=== PATIENT | male | born 1980 | race Caucasian/White ===

== ENCOUNTER 2019-08-17 15:11 | Emergency (ER) | payer MEDICAID, SELFPAY ==
[2019-08-17 16:10] VITALS: BP 148/102; PULSE 103; RESP 28; TEMP 37.4; O2SAT 98
--- NOTE | 2019-08-17 17:03 | ED.URI ---
HPI - URI/Sore Throat General Chief Complaint: Upper Respiratory Infection Stated Complaint: EAr/Nose/Throat Time Seen by Provider: 08/17/19 16:57 Source: patient and RN notes reviewed Mode of arrival: ambulatory Limitations: no limitations History of Present Illness HPI Narrative: Patient presents today complaining of a 2-month history of upper respiratory symptoms, sinus pressure left greater than right, and intermittent ear pressure. Symptoms wax and wane, but have not fully resolved since the beginning of June.Yesterday, patient developed a fever and cough. Cough is dry. Denies shortness of breath, sore throat. Week ago he took a few doses of leftover amoxicillin without relief.Patient developed some back pain after coughing last night. MD elicited complaint: fever, cough and sinus pain Related Data Allergies Allergy/AdvReac Type Severity Reaction Status Date / Time No Known Allergies Allergy Verified 08/17/19 16:43 Review of Systems Review of Systems: Narrative: CONSTITUTIONAL: Denies body aches, chills, or sweats.+Fever EYES: Denies visual changes, redness, or discharge. ENT: Denies rhinorrhea, sore throat, or otalgia.+Congestion, sinus pressure CARDIOVASCULAR: Denies chest pain, palpitations, or edema. RESPIRATORY: Denies dyspnea.+Cough GASTROINTESTINAL: Denies abdominal pain, nausea, vomiting, or diarrhea. GENITOURINARY: Denies dysuria or hematuria. SKIN: Denies rash, itching, or wounds. MUSCULOSKELETAL: Denies back pain, joint pain, or myalgia. NEUROLOGIC: Denies headache, numbness, tingling, or weakness. PSYCH: Denies depression or anxiety. PMFSH Comments At time of signature, I have reviewed and agree with nursing past medical, surgical, social and family history unless otherwise noted. Please see nursing chart for further information. There is no relevant family history pertinent to the presenting complaint Exam Narrative: Exam Narrative: GENERAL: Well-appearing, well-nourished, and in no acute distress. HEAD: Normocephalic, atraumatic. EYES: EOMI. No redness or drainage. Conjunctivae normal. ENT: Mucous membranes pink and moist. Nares Congested. No rhinorrhea. Left maxillary sinus tenderness.Patient had a bit of epistaxis from the left side after influenza swab. TMs normal bilaterally. Throat normal. Uvula midline. NECK: Normal AROM. Supple. No lymphadenopathy. CHEST: No respiratory distress. Clear to auscultation. Patient taking shallow breaths due to rib pain. HEART: Regular rate and rhythm. No murmur appreciated. Normal peripheral pulses. EXTREMITIES: Normal range of motion. No edema. SKIN: Warm, dry, no rash. NEURO: No focal deficits. Alert and oriented x3. Gait steady. PSYCH: Normal affect. No signs of depression or anxiety. Course Vital Signs Vital signs: Vital Signs Temperature 99.3 F 08/17/19 16:10 Pulse Rate 103 H 08/17/19 16:10 Respiratory Rate 28 H 08/17/19 16:10 Blood Pressure 148/102 H 08/17/19 16:10 Pulse Oximetry 98 08/17/19 16:10 Temperature 99.3 F 08/17/19 16:10 Pulse Rate 103 H 08/17/19 16:10 Respiratory Rate 28 H 08/17/19 16:10 Blood Pressure 148/102 H 08/17/19 16:10 Pulse Oximetry 98 08/17/19 16:10 Reviewed. Pt has been instructed to follow up with his PCP regarding his elevated blood pressure today. MDM - URI/Sore Throat Differential Diagnosis Differential diagnosis: Likely upper respiratory infection, sinusitis, viral infection and influenza Lab Data Attestation: I reviewed the patient's lab results. Labs: Influenza A Screen Positive Reference Range: Negative Influenza B Screen Negative Reference Range: Negative Critical Care Time Critical Care Time Critical Care Time: No Discharge Plan Discharge Clinical Impression: Influenza A Sinusitis Qualifiers: Sinusitis location: maxillary Chronicity: acute Recurrence: not specified as recurrent Qualified Code(s): J01.00 - Acute maxill
[2019-08-17 17:10] VITALS: BP 150/90
== END 2019-08-17 17:10 | disposition home or self-care (01) ==
PROVIDERS: Emergency Provider Nurse Practitioner
DX: J10.1 Influenza due to other identified influenza virus with other respiratory manifestations (principal)
CPT/HCPCS: 87804; 99203; G0463

== ENCOUNTER 2021-03-03 15:48 | Emergency (ER) | payer BC, SELFPAY ==
[2021-03-03 15:55] VITALS: BP 140/91; PULSE 87; RESP 14; TEMP 36.8; O2SAT 98
--- NOTE | 2021-03-03 15:55 | ED.UPPEXIN ---
HPI - Extremity Injury (Upper) General Chief Complaint: Extremity Injury, Upper Stated Complaint: Redness and swollen right Elbow Time Seen by Provider: 03/03/21 15:55 Source: patient and RN notes reviewed History of Present Illness HPI narrative: Patient is a 41-year-old male who presents the urgent care with complaints of red swollen right elbow. Patient states it started on Saturday but he has had repeated issues with the elbows due to repetitive motion and the type of work he does. Patient states he has been taking ibuprofen without much relief. No other acute complaints. No acute distress noted. Patient aware of the plan of care. Some parts of this dictation were generated by voice recognition software and may contain typographical and/or grammatical inaccuracies. Related Data Allergies Allergy/AdvReac Type Severity Reaction Status Date / Time No Known Allergies Allergy Verified 03/03/21 16:04 Review of Systems Review of Systems: CONSTITUTIONAL: Denies fever, chills, or sweats. EYES: Denies visual changes, redness, or discharge. ENT: Denies rhinorrhea, congestion, sore throat, or otalgia. CARDIOVASCULAR: Denies chest pain, palpitations, or edema. RESPIRATORY: Denies cough or dyspnea. GASTROINTESTINAL: Denies abdominal pain, nausea, vomiting, or diarrhea. GENITOURINARY: Denies dysuria or hematuria. SKIN: Denies rash or itching. MUSCULOSKELETAL: Reports of right elbow pain, redness and swelling NEUROLOGIC: Denies headache, numbness, or weakness. All other systems reviewed are negative, except as documented in HPI. PMFSH Comments At the time of my signature, I reviewed and agree with the nursing past medical, surgical, social, and family history. There is no relevant family history pertinent to the patient complaint. Exam Narrative: GENERAL: This is a well-nourished, well-developed patient, in no apparent distress. HEAD: normocephalic, atraumatic. EYES: PERRL. Sclera clear/white. Vision is grossly intact. EARS: External ears normal NOSE: External nose normal with no obvious nasal discharge, nares without redness, no rhinorrhea. THROAT: Mucous membranes moist NECK: Neck supple CARDIOVASCULAR: Regular rate and rhythm without murmurs, gallops, or rubs. RESPIRATORY: Clear to auscultation. Breath sounds equal bilaterally. No wheezes, rales, or rhonchi. SKIN: warm, intact with no suspicious lesions or rash, good texture and turgor. NEURO: awake, alert, and oriented to person, place and time. There were no obvious focal neurologic abnormalities. EXTREMITIES: Mild erythemic edematous bursitis to the right elbow. Mild tenderness/pain on assessment. Exacerbated pain with flexion. Positive strong right radial pulse with capillary refill less than 2 seconds. Range of motion to right upper extremity within normal limits. Course Vital Signs Vital signs: Vital Signs Temperature 98.3 F 03/03/21 15:55 Pulse Rate 87 03/03/21 15:55 Respiratory Rate 14 03/03/21 15:55 Blood Pressure 140/91 H 03/03/21 15:55 Pulse Oximetry 98 03/03/21 15:55 Temperature 98.3 F 03/03/21 16:07 Pulse Rate 87 03/03/21 16:07 Respiratory Rate 14 03/03/21 16:07 Blood Pressure 140/91 H 03/03/21 16:07 Pulse Oximetry 98 03/03/21 16:07 Reviewed-patient is informed that they may have pre-hypertension or hypertension based on a blood pressure reading in the department. I recommend the patient call the primary care provider listed on their discharge instructions or a physician of their choice this week to arrange follow-up for further evaluation of possible pre-hypertension or hypertension. MDM - Extremity Injury (Upper) MDM Narrative Medical decision making narrative: Advised the patient to complete oral steroid regimen as prescribed. Be sure to eat and drink with medication. Use an Jose wrap or Curlex gauze to add a little pressure to the area. Use Tylenol/ibuprofen as needed for pain. Follow-up with your PCP within 2 to 5 day
[2021-03-03 16:07] VITALS: BP 140/91; PULSE 87; RESP 14; TEMP 36.8; O2SAT 98
== END 2021-03-03 16:25 | disposition home or self-care (01) ==
PROVIDERS: Emergency Provider Nurse Practitioner Family
DX: M71.9 Bursopathy, unspecified (principal); R73.03 Prediabetes
CPT/HCPCS: 99213; G0463